=== PATIENT | female | born 2000 | race Caucasian/White ===

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

== ENCOUNTER 2020-12-01 06:53 | Emergency (ER) | payer MEDICAID, OTHER ==
[~2020-12-01] VITALS: Ht 172.7 cm; Wt 88.6 kg
--- NOTE | 2020-12-01 08:09 | NUR ---
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
[2020-12-01] MEDS ORDERED: CEFTRIAXONE 1,000 MG IM ONE (08:30)
[2020-12-01 10:24] LABS: CLUE CELLS PRESENT (NONE SEEN)
[2020-12-01 10:25] LABS: WET PREP WBCS MANY (FEW)
[2020-12-01] MEDS ORDERED: CEFTRIAXONE 1,000 MG ONE (10:47)
[2020-12-01 10:51] VITALS: BP 117/54
--- NOTE | 2020-12-01 11:15 | NUR ---
PT REC'VD DISCHARGE INSTRUCTIONS AND EDUCATION. PT HADNO FURTHER QUESTIONS. PT AMBULATED TO DC AREA, STEADY GAIT.
== END 2020-12-01 11:17 | disposition home or self-care (01) ==
LOC: ED 11:00
DX: A56.8 Sexually transmitted chlamydial infection of other sites (principal); N76.0 Acute vaginitis; A54.9 Gonococcal infection, unspecified
CPT/HCPCS: 87210; 87491; 87591; 87808; 96372; 99284; J0696